=== PATIENT | male | born 1970 | race Caucasian/White ===

== ENCOUNTER → 2019-01-31 08:50 | Outpatient (CLI) | payer BC, SELFPAY ==
[2019-01-31 09:19] LABS: Influenza A and B by PCR Rapid Negative (Negative)
== END ==
PROVIDERS: Visit Provider Physician Assistant
DX: R68.89 Other general symptoms and signs (principal)
CPT/HCPCS: 87400; 87502

== ENCOUNTER → 2021-11-20 08:32 | Outpatient (CLI) | payer BC, SELFPAY ==
--- NOTE | 2021-11-20 08:35 | DI.MRI.S_ITS ---
PROCEDURE: MR KNEE RT WO CON INDICATIONS: INTERNAL DERANGEMENT OF RIGHT KNEE TECHNIQUE: Noncontrast sagittal PD fast spin echo and T2 fast spin echo with fat saturation, sagittal 3-D FLASH with fat saturation; coronal T1 spin echo and PD fast spin echo with fat saturation, and axial PD fast spin echo with fat saturation through the knee. COMPARISON: [facility], CR, XR KNEE 3 VIEWS RIGHT, 10/31/2021, 10:37. FINDINGS: Image quality: Excellent. Menisci: Complex oblique tear involving posterior horn of medial meniscus is seen extending to both superior and inferior articulating surfaces. Complex tear also noted involving body and posterior horn of lateral meniscus extending to both superior and inferior articulating surfaces. The meniscal root ligaments appear intact. Cruciate ligaments: Patient is status post prior ACL repair. Thickened ACL graft with heterogeneously T2 hyperintense signal within ACL graft is seen. No full-thickness ACL rupture. PCL is intact. Medial structures: The medial collateral ligament appears mildly thickened. The posterior oblique ligament, semimembranosus tendon insertions, oblique popliteal ligament, and meniscocapsular junction appear intact. Visualized portions of the pes anserinus tendons appear normal. No abnormal bursal fluid. Lateral structures: The lateral collateral ligament is thickened. The long and short heads of the biceps femoris tendon appear intact. The popliteus tendon appears normal; the popliteofibular ligament appears intact. The posterosuperior and anteroinferior popliteomeniscal fascicles appear intact. The arcuate and fabellofibular ligaments appear intact, on either side of the lateral inferior geniculate artery. Iliotibial band appears normal. Anterior structures: The quadriceps and patellar tendons appear intact. Patellar alignment is normal. No femoral trochlear dysplasia or ventral trochlear prominence. No edema in the infrapatellar fat pad. Bones and cartilage: Postsurgical changes are noted in lateral femoral condyle and medial portion of proximal tibia. No acute fracture or dislocation. No gross marrow edema. 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 Joint space: There is moderate amount of joint fluid. No Doss's cyst. Normal appearing synovial plicae are incidentally noted. IMPRESSION: 1. Prior ACL reconstruction surgery with postsurgical changes. No gross marrow edema. No acute fracture or dislocation. 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 2. Suggestion of sprain/intrasubstance partial-thickness tear involving anterior cruciate ligament graft. No definite full-thickness ACL graft rupture. PCL is intact. 3. Low-grade MCL and LCL sprain. 4. Complex tear involving body and posterior horn of lateral meniscus extending to both superior and inferior articulating surfaces. Complex tear also noted in posterior horn of medial meniscus extending to both superior and inferior articulating surfaces. Dictated by: Mil Medeiros M.D. on 11/20/2021 at 12:27 Approved by: Mil Medeiros M.D. on 11/20/2021 at 12:33
== END ==
PROVIDERS: PCP Internal Medicine; Referring Provider Physician Assistant Medical; Visit Provider Physician Assistant Medical
DX: S83.231A Complex tear of medial meniscus, current injury, right knee, initial encounter (principal); S83.271A Complex tear of lateral meniscus, current injury, right knee, initial encounter; S83.411A Sprain of medial collateral ligament of right knee, initial encounter; S83.421A Sprain of lateral collateral ligament of right knee, initial encounter; M17.11 Unilateral primary osteoarthritis, right knee; M94.261 Chondromalacia, right knee; M23.91 Unspecified internal derangement of right knee
CPT/HCPCS: 73721

== ENCOUNTER → 2023-02-06 09:03 | Outpatient (CLI) | payer OTHER, SELFPAY ==
--- NOTE | 2023-02-06 | DI.MRI.S_ITS ---
PROCEDURE: MR CERVICAL SPINE WO CON INDICATIONS: Radiculopathy, cervical region TECHNIQUE: Noncontrast sagittal T1 spin echo and T2 fast spin echo, sagittal STIR, foraminal oblique sagittal T2 fast spin echo, and axial gradient echo or T2 fast spin echo through the cervical spine. COMPARISON: [facility] [place], CR, XR CERVICAL SPINE WITH OBLIQUES, 01/13/2023, 9:55. FINDINGS: Image quality: Excellent. Alignment and Curvature: There is normal bony alignment. Congenital partial interbody fusion of C2-C3. Bone Marrow: Marrow demonstrates normal overall signal. Spinal Cord: Visualized spinal cord has normal size and signal. No cerebellar tonsillar herniation. Paraspinous Soft Tissues: No paravertebral masses. Prevertebral soft tissues are normal in thickness. C2-C3: No canal stenosis or foraminal stenosis. C3-C4: Mild central posterior disc protrusion slightly indenting on the ventral cord. AP diameter of the central canal is 9.1 mm. Right facet hypertrophy. Small right uncovertebral joint osteophyte. Moderate to severe right foraminal narrowing with a degree of right foraminal C4 nerve root impingement. C4-C5: Mild central posterior osteophyte. No canal stenosis. AP diameter of the canal is 10.9 mm. No foraminal stenosis. C5-C6: No canal stenosis. Left uncovertebral joint hypertrophy and facet hypertrophy with moderate to severe left foraminal narrowing and left foraminal C6 nerve root impingement. C6-C7: No canal stenosis. Bilateral uncovertebral joint hypertrophy and facet hypertrophy. Moderate to severe bilateral foraminal narrowing with a degree of bilateral foraminal C7 nerve root impingement. C7-T1: Mild flat right paracentral disc extrusion resulting in moderate right lateral recess stenosis and a degree of impingement on the ventral horn of the right C8 nerve root in the right lateral recess. No central canal stenosis. No foraminal nerve root impingement. IMPRESSION: 1. There is a flat right paracentral disc extrusion at C7-T1 which impinges on the ventral horn of the right C8 nerve root in the right lateral recess. 2. Diffuse spondylitic change with multilevel uncovertebral joint hypertrophy and facet arthropathy. 3. There is [id number] canal stenosis at C3-C4. 4. Significant multilevel foraminal narrowing. Findings include bilateral foraminal nerve root impingement at C3-C4, left foraminal nerve root impingement at C5-C6, and bilateral foraminal nerve root impingement at C6-C7. Dictated by: Mauro Reece M.D. on 02/06/2023 at 11:32 Approved by: Mauro Reece M.D. on 02/06/2023 at 11:43
== END ==
PROVIDERS: PCP Orthopaedic Surgery Foot and Ankle Surgery; Referring Provider Physical Medicine & Rehabilitation Pain Medicine; Visit Provider Physical Medicine & Rehabilitation Pain Medicine
DX: M50.13 Cervical disc disorder with radiculopathy, cervicothoracic region (principal); M47.812 Spondylosis without myelopathy or radiculopathy, cervical region; M48.02 Spinal stenosis, cervical region
CPT/HCPCS: 72141